=== PATIENT | male | born 1975 | race Caucasian/White ===

== ENCOUNTER 2022-01-02 13:26 | Emergency (ER) | payer OTHER ==
[~2022-01-02 13:26] MED LIST: ECOTRIN81 MG PO; LOPRESSOR 25 MG25 MG PO; PRINIVIL5 MG PO
== END 2022-01-02 15:30 | disposition home or self-care (01) ==
LOC: ER1 13:26
DX: S61.211A Laceration without foreign body of left index finger without damage to nail, initial encounter (principal); Z88.0 Allergy status to penicillin; Z23 Encounter for immunization; W26.0XXA Contact with knife, initial encounter
CPT/HCPCS: 12001; 90471; 90715; 99283